=== PATIENT | female | born 1970 | race African-American/Black ===

== ENCOUNTER 2017-06-01 08:43 | Observation (INO) | payer OTHER ==
[2017-06-01 08:56] VITALS: BMI 38.9
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
[2017-06-01] MEDS ORDERED: LIDOCAINE 5% TOPICAL PATCH TP ONE (10:02)
[2017-06-01] MEDS ORDERED: traMADol HCL 50 MG TABLET PO ONE (10:02)
[2017-06-01] MEDS ORDERED: MAG HYDROX/AL HYDROX/SIMETH 30 ML UNIT-DOSE CUP PO ONE (10:11)
[2017-06-01] MEDS ORDERED: LIDOCAINE VISCOUS 2% ORAL/TOP 20 ML UNIT-DOSE CUP MM ONE (10:11)
[2017-06-01] MEDS ORDERED: traMADol HCL 50 MG TABLET ONE (11:46)
[2017-06-01] MEDS ORDERED: MAG HYDROX/AL HYDROX/SIMETH 30 ML UNIT-DOSE CUP ONE (11:46)
[2017-06-01] MEDS ORDERED: LIDOCAINE VISCOUS 2% ORAL/TOP 20 ML UNIT-DOSE CUP ONE (11:46)
[2017-06-01] MEDS ORDERED: LIDOCAINE 5% TOPICAL PATCH ONE ×2 (11:47)
[2017-06-01] MEDS ORDERED: SODIUM CHLORIDE 0.9% 1000 ML INFUS.BAG IV ONE (13:14)
[2017-06-01 14:13] LABS: BASOPHIL 1.1 % (0-2.0); EOSINOPHIL 5.5 % (0-4.5); MCH 28.3 pg (25.7-33.7); MCHC 32.4 g/dl (32.0-36.0); MEAN CELL VOLUME 87.4 fl (80-96); NEUTROPHILS 43.9 % (42.8-82.8); PLATELET COUNT 335 K/MM3 (134-434); RDW 14.3 % (11.6-15.6); WHITE BLOOD COUNT 4.8 K/mm3 (4.0-10.0)
[2017-06-01 14:33] LABS: ALBUMIN 3.6 g/dl (3.4-5.0); ALK PHOS 78 U/L (45-117); ANION GAP 8 (8-16); BILIRUBIN,TOTAL 0.7 mg/dL (0.2-1.0); CALCIUM 9.3 mg/dL (8.5-10.1); CO2 29 mmol/L (21-32); CPK 99 IU/L (26-192); CREATININE 0.6 mg/dL (0.55-1.02); GLUCOSE,RANDOM 85 mg/dL (74-106); SGPT/ALT 25 U/L (12-78); TOT PROT 7.4 g/dl (6.4-8.2)
[2017-06-01 14:34] LABS: TROPONIN I < 0.02 ng/ml (0.00-0.05)
[2017-06-01 14:40] LABS: SGOT/AST 22 U/L (15-37)
[2017-06-01] MEDS ORDERED: ENOXAPARIN NA (PORCINE) 100 MG/1 ML DISP.SYRIN SQ ONE ×2 (14:45→16:09)
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
[2017-06-01] MEDS: FERROUS SO4 325 MG TABLET (FP) PO SCH (21:19)
[2017-06-01] MEDS: METHOCARBAMOL 500 MG TABLET PO SCH (21:19)
[2017-06-01] MEDS: RANITIDINE HCL 150 MG TABLET (FP) PO SCH (21:20)
[2017-06-01] MEDS: NABUMETONE 750 MG TABLET PO SCH (21:20)
[2017-06-01 21:21] LABS: CPK 58 IU/L (26-192)
[2017-06-01 21:22] LABS: TROPONIN I < 0.02 ng/ml (0.00-0.05)
[2017-06-01] MEDS ORDERED: LIDOCAINE PATCH REMOVAL MC SCH (22:00)
[2017-06-02 02:03] LABS: CPK 57 IU/L (26-192); TROPONIN I < 0.02 ng/ml (0.00-0.05)
[2017-06-02] MEDS ORDERED: ENOXAPARIN NA (PORCINE) 100 MG/1 ML DISP.SYRIN SQ ONE (05:00)
[2017-06-02] MEDS: FERROUS SO4 325 MG TABLET (FP) PO SCH ×2 (05:33→14:38)
[2017-06-02 08:34] LABS: MCH 28.7 pg (25.7-33.7); MCHC 32.8 g/dl (32.0-36.0); MEAN CELL VOLUME 87.3 fl (80-96); MEAN PLT VOLUME 6.7 fl (7.5-11.1); PLATELET COUNT 301 K/MM3 (134-434); RDW 14.4 % (11.6-15.6); WHITE BLOOD COUNT 4.6 K/mm3 (4.0-10.0)
[2017-06-02] MEDS: METHOCARBAMOL 500 MG TABLET PO SCH ×3 (09:01→14:39)
[2017-06-02] MEDS: NABUMETONE 750 MG TABLET PO SCH (09:01)
[2017-06-02] MEDS: OXYBUTYNIN CHLORIDE 5 MG TABLET PO SCH ×2 (09:01→09:39)
[2017-06-02] MEDS: RANITIDINE HCL 150 MG TABLET (FP) PO SCH (09:01)
[2017-06-02 09:16] LABS: ALBUMIN 3.2 g/dl (3.4-5.0); ANION GAP 6 (8-16); CALCIUM 8.8 mg/dL (8.5-10.1); CO2 30 mmol/L (21-32); CREATININE 0.6 mg/dL (0.55-1.02); GLUCOSE,RANDOM 85 mg/dL (74-106); SGOT/AST 13 U/L (15-37); SGPT/ALT 21 U/L (12-78)
[2017-06-02 09:18] LABS: ALK PHOS 73 U/L (45-117); BILIRUBIN,TOTAL 0.7 mg/dL (0.2-1.0); TOT PROT 6.6 g/dl (6.4-8.2)
[2017-06-02] MEDS ORDERED: HYDROCHLOROTHIAZIDE 12.5 MG CAPSULE (FP) PO SCH (10:00)
[2017-06-02 10:31] VITALS: TEMP 98
[2017-06-02] MEDS ORDERED: oxyCODONE HCL 5 MG TABLET PO ONE (13:16)
--- NOTE | 2017-06-02 13:46 | DS ---
Physical Examination Vital Signs: Vital Signs Temperature 98 F 06/02/17 08:00 Pulse Rate 55 L 06/02/17 08:00 Respiratory Rate 20 06/02/17 08:00 Blood Pressure 110/69 06/02/17 08:00 O2 Sat by Pulse Oximetry (%) 98 06/02/17 08:00 Labs: CBC, BMP 06/02/17 07:35 06/02/17 07:35 Discharge Summary Reason For Visit: CHEST PAIN Current Active Problems Atypical chest pain (Acute) Chest pain (Acute) Condition: Improved - Instructions Diet, Activity, Other Instructions: Please return to the ED with new, persistent, or worsening symptoms. Please follow-up with providers as indicated. Referrals: Karina Oneill [Primary Care Provider] - (Please follow-up with Dr. Oneill within 1 week. ) Disposition: HOME - Home Medications Comprehensive Discharge Medication List: Ambulatory Orders Famotidine [Heartburn Prevention] 20 mg PO BID 06/01/17 Ferrous Sulfate 325 mg PO TID 06/01/17 Hydrochlorothiazide 12.5 mg PO DAILY 06/01/17 Methocarbamol 750 mg PO QID 06/01/17 Nabumetone 750 mg PO BID 06/01/17 Nabumetone 750 mg PO BID 06/01/17 Oxybutynin 5 mg PO DAILY 06/01/17 Vitamin D 1,000 WEEKLY 06/01/17 Lidocaine 5% Patch [Lidoderm -] 1 patch TP DAILY #7 patch 06/02/17 Oxycodone HCl [Roxicodone -] 5 mg PO Q6H PRN #20 tablet MDD 4 tabs 06/02/17
[2017-06-02 14:54] VITALS: BP 104/65; PULSE 60
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
--- NOTE | 2017-06-02 16:13 | PN ---
Teaching Attending Note Name of Resident: Raffy Arias ATTENDING PHYSICIAN STATEMENT I saw and evaluated the patient. I reviewed the resident's note and discussed the case with the resident. I agree with the resident's findings and plan as documented. SUBJECTIVE: OBJECTIVE: ASSESSMENT AND PLAN:
--- NOTE | 2017-06-06 09:48 | EKG ---
Test Reason : Blood Pressure : / mmHG Vent. Rate : 047 BPM Atrial Rate : 047 BPM P-R Int : 174 ms QRS Dur : 086 ms QT Int : 462 ms P-R-T Axes : 027 -14 012 degrees QTc Int : 408 ms SINUS BRADYCARDIA OTHERWISE NORMAL ECG WHEN COMPARED WITH ECG OF 16-MAR-2013 01:53, NO SIGNIFICANT CHANGE WAS FOUND Confirmed by LAILA PISANO MD ([id number]) on 06/06/2017 9:48:41 AM Referred By: Confirmed By:LAILA PISANO MD
== END 2017-06-02 17:00 | disposition home or self-care (01) ==
LOC: JER 08:43 → JERBED 13:33 → J4W 17:00
PROVIDERS: ADMIT Internal Medicine; ATTEND Registered Nurse
PROC: 3E013GC Introduction of Other Therapeutic Substance into Subcutaneous Tissue, Percutaneous Approach (ICD-10-PCS; principal; 2017-06-01)
PROC: 3E0337Z Introduction of Electrolytic and Water Balance Substance into Peripheral Vein, Percutaneous Approach (ICD-10-PCS; 2017-06-01)
DX: R07.89 Other chest pain (principal); D64.9 Anemia, unspecified; I10 Essential (primary) hypertension; K21.9 Gastro-esophageal reflux disease without esophagitis; Z91.048 Other nonmedicinal substance allergy status; Z87.09 Personal history of other diseases of the respiratory system; Z98.84 Bariatric surgery status; Z87.891 Personal history of nicotine dependence
CPT/HCPCS: 36415; 71010-TC; 71020-TC; 78582-TC; 80053; 84484; 84703; 85025; 85027; 93005; 93010; 93306-TC; 93970-TC; 94010; 99284-25; A9539; A9540; G0378

== ENCOUNTER 2018-05-24 05:54 | Day surgery (SDC) | payer OTHER ==
[2018-05-15 19:09] VITALS: BMI 37.8
[2018-05-24] MEDS ORDERED: ROPIVACAINE HCL 0.5% 30ML VIAL ONE (07:16)
[2018-05-24] MEDS ORDERED: MIDAZOLAM HCL 2 MG/2 ML SINGLE DOSE VIAL ONE ×2 (07:16→07:17)
[2018-05-24] MEDS ORDERED: PROPOFOL 20 ML ONE ×2 (07:17)
[2018-05-24] MEDS ORDERED: ceFAZolin SODIUM 1 GM VIAL ONE (07:18)
[2018-05-24] MEDS ORDERED: ONDANSETRON 4 MG/2 ML VIAL ONE (07:18)
[2018-05-24] MEDS ORDERED: LIDOCAINE HCL/PF 2% SDV 5ML VIAL ONE (07:18)
[2018-05-24] MEDS ORDERED: DEXAMETHASONE SOD PHOSPHATE 4 MG/1 ML VIAL ONE (07:18)
[2018-05-24] MEDS ORDERED: KETOROLAC TROMETHAMINE 30 MG/1 ML VIAL ONE (07:18)
[2018-05-24] MEDS ORDERED: SUCCINYLCHOLINE CHLORIDE 200 MG/10 ML VIAL ONE (07:24)
[2018-05-24] MEDS ORDERED: EPINEPHrine 1:1,000 1 MG/1 ML - 30ML VIAL (INJECTION) ONE (07:28)
[2018-05-24] MEDS ORDERED: BUPIVACAINE HCL/PF 0.5% (5MG/ML) 10 ML VIAL ONE (08:01)
[2018-05-24] MEDS ORDERED: ePHEDrine SULFATE 50 MG/1 ML AMPULE ONE (08:15)
[2018-05-24] MEDS ORDERED: ONDANSETRON 4 MG/2 ML VIAL IVPUSH PRN (09:58)
[2018-05-24] MEDS ORDERED: oxyCODONE HCL 5 MG TABLET PO PRN ×2 (09:58)
[2018-05-24] MEDS ORDERED: LACTATED RINGERS SOLUTION 1,000 ML IV SCH (10:00)
--- NOTE | 2018-05-24 10:42 | OP ---
Operative Note - Note: Operative Date: 05/24/18 Pre-Operative Diagnosis: r rot cuff tear Operation: r shoulder arthroscopy. -superior labral repair. -biceps tenodesis. -rotator cuff debridement. -subacromial decompression Implants: q-fix x1 Post-Operative Diagnosis: Same as Pre-op (+ SLAP lesion) Surgeon: Jong Blackwood Anesthesiologist/PULP AND PAPER TESTER: Fernando Schultz Anesthesia: Fractional Operative Report Dictated: Yes
[2018-05-24 11:37] VITALS: TEMP 97.5
--- NOTE | 2018-05-24 11:43 | OP ---
DATE OF OPERATION: 05/24/2018 PREOPERATIVE DIAGNOSES: Left shoulder rotator cuff tear, impingement. POSTOPERATIVE DIAGNOSES: Left shoulder rotator cuff tear, impingement, superior labral tear. PROCEDURES: Left shoulder arthroscopy with debridement of rotator cuff tear, biceps tenotomy, superior labral repair, subacromial decompression. ANESTHESIA: Regional plus LMA. POSTOPERATIVE CONDITION: Stable. COMPLICATIONS: None. IMPLANTS: A [employer] Q-FIX anchor single-loaded x1. INDICATIONS: This is a pleasant woman who is suffering from left shoulder pain. MRI demonstrated some rotator cuff tearing. She has failed to improve with conservative measures. We discussed the option of operative care. We reviewed operative risks in detail, including bleeding, infection, neurovascular injury, need for further surgery, postoperative pain and stiffness, re-tear. We discussed medical risks, such as heart attack, stroke, DVT, PE, and . We discussed the use of perioperative antibiotic and DVT prophylaxis. I addressed all of the patient's questions and concerns. We did review the postoperative rehabilitation protocol which can be very prolonged . Again, the patient voiced understanding and elected to proceed. PROCEDURE: The patient was brought to the OR, after administration of a regional block in the preoperative holding area. The left upper extremity was prepped and draped in the usual sterile fashion, after having placed the patient carefully into the beach-chair position. Examination of the extremity demonstrated full range of motion and good stability. The patient was given a preoperative dose of antibiotics and the usual timeout procedure was performed. The arthroscope was now passed in through an established posterior portal. Examination of the glenohumeral joint demonstrated no particular evidence of arthritis. There was significant fraying about the superior labrum. There was some fraying noted about the subscapularis. Passing the arthroscope superiorly demonstrated an intact biceps tendon. The supraspinatus demonstrated some tearing of the inner-most fibers. At this point, an anterior portal was established. Probing the superior labrum demonstrated gross instability and undersurface tear. Given the instability and degenerative tear, it was felt that a biceps tenotomy would best . This was then performed using an up-biting tool. The labrum remained in a displaced position. It was therefore decided to place one anchor to secure the labrum in a more anatomic location. The better of the superior glenoid was debrided using a shaver as well as electrocautery. A single Q-FIX anchor was placed at the apex of the glenoid. A suture was passed in horizontal mattress fashion and then tied down, securing the labrum back down to the superior surface of the glenoid. It was now stable to probing. The shaver was then passed over the supraspinatus partial tear. It was seen to be involving only the inner-most portion and no extension was seen. The subscapularis despite having some fraying demonstrated no need for any intervention. The arthroscope was now withdrawn from the joint. It was passed into the subacromial space. Here, moderate bursitis was noted. A bursectomy was performed. Due to some impingement morphology anteriorly, the undersurface of the acromion was debrided. It was noted that there was an os acromiale which demonstrated motion. The piece was not grossly unstable though and therefore no intervention was needed. At this point, the excess fluid was withdrawn from the joint. It should be noted that prior to doing this, the rotator cuff was inspected and passed through a range of motion and no bursal-sided tears were noted. The portals were then sutured using 3-0 nylon. Sterile dressings were placed. The patient was transferred to the recovery room in stable condition. GENE KELSEY M.D. CHRISTOPHE/[id number]
[2018-05-24] MEDS ORDERED: BSS (NA/CA/MG/K) BALANCED SALT SOLUTION OPHTH SOLN 15 ML BOTTLE ONE (12:36)
[2018-05-24 12:59] VITALS: BP 116/72; PULSE 70
== END 2018-05-24 12:40 | disposition home or self-care (01) ==
LOC: FASU 05:54
PROVIDERS: ATTEND Orthopaedic Surgery Sports Medicine
PROC: 0MM24ZZ Reattachment of Left Shoulder Bursa and Ligament, Percutaneous Endoscopic Approach (ICD-10-PCS; 2018-05-24)
PROC: 0RQK4ZZ Repair Left Shoulder Joint, Percutaneous Endoscopic Approach (ICD-10-PCS; 2018-05-24)
PROC: 0LQ24ZZ Repair Left Shoulder Tendon, Percutaneous Endoscopic Approach (ICD-10-PCS; principal; 2018-05-24 08:47)
PROC: 0RNK4ZZ Release Left Shoulder Joint, Percutaneous Endoscopic Approach (ICD-10-PCS; 2018-05-24 08:47)
DX: M75.102 Unspecified rotator cuff tear or rupture of left shoulder, not specified as traumatic (principal); M75.42 Impingement syndrome of left shoulder; M24.112 Other articular cartilage disorders, left shoulder
CPT/HCPCS: 94760

== ENCOUNTER 2019-03-07 09:18 | Emergency (ER) | payer OTHER ==
[2019-03-07 09:41] VITALS: BP 129/76; PULSE 69; TEMP 98.8; BMI 37.8
--- NOTE | 2019-03-07 09:46 | PDOC ---
*Physical Exam - Vital Signs Last Vital Signs Temp Pulse Resp BP Pulse Ox 98.8 F 69 16 129/76 100 03/07/19 09:35 03/07/19 09:35 03/07/19 09:35 03/07/19 09:35 03/07/19 09:35 ED Treatment Course - LABORATORY CBC & Chemistry Diagram: 03/07/19 11:14 03/07/19 11:14 Medical Decision Making - Medical Decision Making 03/07/19 09:45 48 yo F presenting to the ER with a complaint of severe epigastric burning radiating to the chest Pt has had these symptoms for months and they are worsening No fevers or chills Pt came in to the ER today because she is now also nauseous Pt seen by Midlevel Provider under my direct supervision Will give Protonix, Zofran, Carafate Will re assess Labs: Laboratory Tests 03/07/19 03/07/19 11:14 11:14 WBC 4.6 Hgb 13.8 Hct 41.3 Plt Count 368 D BUN 10.8 Creatinine 0.9 AST 27 ALT 26 Lipase 95 I agree with plan as outlined by Midlevel Provider 03/07/19 10:22 Pt improved while in the ER Pt will need to follow up with GI for endoscopy as she potentially has ulcer/ gastritis/ gamble's esophagus/Hpylori Will discharge to home *DC/Admit/Observation/Transfer Diagnosis at time of Disposition: GERD (gastroesophageal reflux disease) - Discharge Dispostion Disposition: HOME Condition at time of disposition: Stable - Prescriptions Prescriptions: Pantoprazole Sodium [Protonix] 40 mg PO DAILY #30 tablet. Sucralfate [Carafate -] 1 gm PO Q6H #28 tablet - Referrals Referrals: Ranulfo Correa MD [Primary Care Provider] - 2 Days Lennox Forde MD [Staff Physician] - Call tomorrow - Patient Instructions Printed Discharge Instructions: DI for Gastroesophageal Reflux Disease (GERD) - Post Discharge Activity
[2019-03-07] MEDS ORDERED: ONDANSETRON *ODT* 4 MG TABLET SL ONE (09:53)
[2019-03-07] MEDS ORDERED: PANTOPRAZOLE 40 MG TABLET (FP) PO ONE (09:53)
[2019-03-07] MEDS ORDERED: ONDANSETRON *ODT* 4 MG TABLET ONE (09:59)
[2019-03-07] MEDS ORDERED: PANTOPRAZOLE 40 MG TABLET (FP) ONE (09:59)
[2019-03-07] MEDS ORDERED: SUCRALFATE 1 GM TABLET (FP) PO ONE (10:02)
[2019-03-07] MEDS ORDERED: SUCRALFATE 1 GM TABLET (FP) ONE (10:03)
--- NOTE | 2019-03-07 10:13 | PDOC ---
History of Present Illness - General Chief Complaint: Pain, Acute Stated Complaint: PAIN Time Seen by Provider: 03/07/19 09:40 History Source: Patient Exam Limitations: No Limitations Past History - Past Medical History Allergies/Adverse Reactions: Allergies Allergy/AdvReac Type Severity Reaction Status Date / Time iodine Allergy Unknown Swelling Verified 03/07/19 09:34 Home Medications: Ambulatory Orders Famotidine [Heartburn Prevention] 20 mg PO BID 06/01/17 Ferrous Sulfate 325 mg PO BID 06/01/17 Ergocalciferol (Vitamin D2) [Vitamin D2] 2,000 unit PO WEEKLY 04/11/18 Hydrochlorothiazide [Hctz -] 12.5 mg PO HS 04/11/18 Oxybutynin Chloride [Ditropan Xl] 10 mg PO HS 04/11/18 Naproxen [Naprosyn] 500 mg PO ASDIR PRN 05/24/18 Pantoprazole Sodium [Protonix] 40 mg PO DAILY #30 tablet. 03/07/19 Sucralfate [Carafate -] 1 gm PO Q6H #28 tablet 03/07/19 Anemia: Yes (r/t gastric bypass) Asthma: No Cancer: No Cardiac Disorders: No CVA: No COPD: No CHF: No Dementia: No Diabetes: No GI Disorders: Yes (GERD) Disorders: No HTN: No Hypercholesterolemia: No Liver Disease: No Seizures: No Thyroid Disease: No - Surgical History Abdominal Surgery: Yes (gastric bypass) Appendectomy: No Cardiac Surgery: No Cholecystectomy: No Lung Surgery: No Neurologic Surgery: No Orthopedic Surgery: No - Immunization History Immunization Up to Date: No - Suicide/Smoking/Psychosocial Hx Smoking Status: Yes Smoking History: Former smoker Have you smoked in the past 12 months: No Number of Cigarettes Smoked Daily: 2 If you are a former smoker, when did you quit?: 2013 Information on smoking cessation initiated: No 'Breaking Loose' booklet given: 08/31/13 Hx Alcohol Use: No Drug/Substance Use Hx: No Substance Use Type: Alcohol Hx Substance Use Treatment: No *Physical Exam - Vital Signs Last Vital Signs Temp Pulse Resp BP Pulse Ox 98.8 F 69 16 129/76 100 03/07/19 09:35 03/07/19 09:35 03/07/19 09:35 03/07/19 09:35 03/07/19 09:35 - Physical Exam General Appearance: No: Apparent Distress Respiratory/Chest: positive: Lungs Clear, Normal Breath Sounds. negative: Respiratory Distress Cardiovascular: positive: Regular Rhythm, Regular Rate, S1, S2. negative: Murmur Gastrointestinal/Abdominal: positive: Normal Bowel Sounds, Tender (mild along epigastric site, no RUQ tenderness), Soft. negative: Distended, Guarding, Rebound Integumentary: positive: Normal Color Neurologic: positive: Alert, Normal Mood/Affect ED Treatment Course - LABORATORY CBC & Chemistry Diagram: 03/07/19 11:14 03/07/19 11:14 - Medications Given in the ED: ED Medications Discontinued Medications Generic Name Dose Route Start Last Admin Trade Name Jules PRN Reason Stop Dose Admin Ondansetron HCl 4 mg 03/07/19 09:53 03/07/19 10:02 Zofran Odt - SL 03/07/19 09:54 4 mg ONCE ONE Administration Pantoprazole Sodium 40 mg 03/07/19 09:53 03/07/19 10:02 Protonix - PO 03/07/19 09:54 40 mg ONCE ONE Administration Medical Decision Making - Medical Decision Making 48 y/o F hx of GERD (for around 20 years), asthma, anemia, gastric bypass ( around 10 years ago) presents with gradual worsening of her acid reflux since December 2018, particularly worse the past 3 days. Mentions having NBNB emesis yesterday and 1 episode today along with loose stools. Is currently taking Pepcid and also tried Gaviscon, which has not been helping. Patient is not currently on a PPI; was on a PPI in the past, but it wasn't as effective as Pepcid. Patient has not seen a GI doctor in 15 years and does not recall any prior endoscopies done. Mentions she did not discuss this with her PCP either. States she also changed her diet in December to eat less fried foods and sleeps upright, but still not feeling any better. Was former smoker (quit 5 years ago; smoked around 25 years, 3 cigs/day). +social alcohol intake. Denies fever, URI sxs, sob, urinary complaints, black/bloody stools, hematemesis. Concern for worsening GERD (will need endoscopy as outpatient for further evaluation - consider Ram's, H. pylori infection, PUD) Given chronicity of symptoms, not suspicious for ACS at this time; also unlikely cholecystitis, pancreatitis, diverticulitis, perforated/bleeding PUD Plan: Protonix, Sucralfate, SL Zofran, reassess 03/07/19 10:07 Patient not feeling better after meds given Plan: Labs, IV Pepcid, Maalox, viscous lidocaine 03/07/19 11:17 Patient feeling much better on reassessment Labs unremarkable Will refer to GI stable for dc 03/07/19 12:36 *DC/Admit/Observation/Transfer Diagnosis at time of Disposition: GERD (gastroesophageal reflux disease) Qualifiers: Esophagitis presence: esophagitis presence not specified Qualified Code(s): K21.9 - Gastro-esophageal reflux disease without esophagitis - Discharge Dispostion Disposition: HOME Condition at time of disposition: Stable Decision to Admit order: No - Prescriptions Prescriptions: Pantoprazole Sodium [Protonix] 40 mg PO DAILY #30 tablet. Sucralfate [Carafate -] 1 gm PO Q6H #28 tablet - Referrals Referrals: Lennox Forde MD [Staff Physician] - Call tomorrow Ranulfo Correa MD [Primary Care Provider] - 2 Days - Patient Instructions Printed Discharge Instructions: DI for Gastroesophageal Reflux Disease (GERD) Additional Instructions: Thank you for choosing [facility]. It was a pleasure taking care of you. You were prescribed medications for your acid reflux Take as prescribed You were referred to GI doctor - please call to make appointment; you may need endoscopy for further evaluation of your symptoms Also follow-up with your regular doctor in 2-3 days Return to the Emergency Department if your symptoms worsen or persist or have other concerning symptoms. - Post Discharge Activity
[2019-03-07] MEDS ORDERED: MAG HYDROX/AL HYDROX/SIMETH 30 ML UNIT-DOSE CUP PO ONE (10:54)
[2019-03-07] MEDS ORDERED: LIDOCAINE VISCOUS 2% ORAL/TOP 20 ML UNIT-DOSE CUP MM ONE (10:54)
[2019-03-07] MEDS ORDERED: FAMOTIDINE 20 MG/50 ML IVPB 20 MG/50 ML MG IVPB ONE ×2 (10:54→11:22)
[2019-03-07] MEDS ORDERED: SODIUM CHLORIDE 1,000 ML IV STA (11:10)
[2019-03-07] MEDS ORDERED: MAG HYDROX/AL HYDROX/SIMETH 30 ML UNIT-DOSE CUP ONE (11:14)
[2019-03-07] MEDS ORDERED: LIDOCAINE VISCOUS 2% ORAL/TOP 20 ML UNIT-DOSE CUP ONE (11:14)
[2019-03-07 11:28] LABS: BASO % 0.3 % (0-2.0); EOS % 1.1 % (0-4.5); HEMATOCRIT 41.3 % (32.4-45.2); HEMOGLOBIN 13.8 GM/dL (10.7-15.3); MCH 28.5 pg (25.7-33.7); MCHC 33.3 g/dl (32.0-36.0); MEAN CELL VOLUME 85.4 fl (80-96); MEAN PLT VOLUME 6.8 fl (7.5-11.1); MONO % 5.7 % (3.8-10.2); NEUT % 51.9 % (42.8-82.8); RBC 4.84 M/mm3 (3.60-5.2); RDW 14.4 % (11.6-15.6); WHITE BLOOD COUNT 4.6 K/mm3 (4.0-10.0)
[2019-03-07 11:35] LABS: PLATELET COUNT 368 K/MM3 (134-434)
[2019-03-07 12:06] LABS: ALBUMIN 3.9 g/dl (3.4-5.0); BILIRUBIN,TOTAL 0.5 mg/dL (0.2-1); BLOOD UREA NITROGEN 10.8 mg/dL (7-18); CALCIUM 9.8 mg/dL (8.5-10.1); CREATININE 0.9 mg/dL (0.55-1.3); MAGNESIUM 2.4 mg/dL (1.8-2.4); POTASSIUM 4.5 mmol/L (3.5-5.1); TOT PROT 8.6 g/dl (6.4-8.2)
== END 2019-03-07 12:52 | disposition home or self-care (01) ==
LOC: JER 09:18
PROC: 3E033GC Introduction of Other Therapeutic Substance into Peripheral Vein, Percutaneous Approach (ICD-10-PCS; principal; 2019-03-07)
PROC: 3E0337Z Introduction of Electrolytic and Water Balance Substance into Peripheral Vein, Percutaneous Approach (ICD-10-PCS; 2019-03-07)
DX: K21.9 Gastro-esophageal reflux disease without esophagitis (principal); Z98.84 Bariatric surgery status; Z87.891 Personal history of nicotine dependence
CPT/HCPCS: 36415; 80053; 83690; 83735; 85025; 99281-25; J7030; Q0162

== ENCOUNTER 2019-10-03 15:57 | Emergency (ER) | payer OTHER ==
--- NOTE | 2019-10-03 16:18 | PDOC ---
Rapid Medical Evaluation Time Seen by Provider: 10/03/19 16:14 Medical Evaluation: Allergies Allergy/AdvReac Type Severity Reaction Status Date / Time iodine Allergy Unknown Swelling Verified 10/03/19 16:15 10/03/19 16:15 CC: R knee pain Pt is a 49 y/o female with L knee pain that started without injury. No fevers. No known history of gout. Brief exam: Medial R knee tenderness to palpation, Minimal ROM secondary to pain Orders: R knee xray To ED for further evaluation Discharge Disposition - Diagnosis Right knee pain - Referrals - Patient Instructions - Post Discharge Activity
[2019-10-03 16:22] VITALS: BP 118/72; PULSE 62; TEMP 97.9; BMI 31.7
--- NOTE | 2019-10-03 16:34 | PDOC ---
History of Present Illness - General Chief Complaint: Pain, Acute Stated Complaint: RT KNEE PAIN Time Seen by Provider: 10/03/19 16:14 History Source: Patient Exam Limitations: No Limitations Past History - Past Medical History Allergies/Adverse Reactions: Allergies Allergy/AdvReac Type Severity Reaction Status Date / Time iodine Allergy Unknown Swelling Verified 10/03/19 16:15 Home Medications: Ambulatory Orders Ferrous Sulfate 325 mg PO BID 06/01/17 Ergocalciferol (Vitamin D2) [Vitamin D2] 1,000 unit PO DAILY 04/11/18 Oxybutynin Chloride [Ditropan Xl] 10 mg PO HS 04/11/18 Hydroxyzine HCl 50 mg PO HS 10/03/19 Anemia: Yes (r/t gastric bypass) Asthma: No Cancer: No Cardiac Disorders: No CVA: No COPD: No CHF: No Dementia: No Diabetes: No GI Disorders: Yes (GERD) Disorders: No HTN: No Hypercholesterolemia: No Liver Disease: No Seizures: No Thyroid Disease: No - Surgical History Abdominal Surgery: Yes (gastric bypass) Appendectomy: No Cardiac Surgery: No Cholecystectomy: No Lung Surgery: No Neurologic Surgery: No Orthopedic Surgery: No - Immunization History Immunization Up to Date: No - Psycho Social/Smoking Cessation Hx Smoking Status: Yes Smoking History: Unknown if ever smoked Have you smoked in the past 12 months: No Number of Cigarettes Smoked Daily: 2 If you are a former smoker, when did you quit?: 2013 'Breaking Loose' booklet given: 08/31/13 Hx Alcohol Use: No Drug/Substance Use Hx: No Substance Use Type: Alcohol Hx Substance Use Treatment: No *Physical Exam - Vital Signs Last Vital Signs Temp Pulse Resp BP Pulse Ox 97.9 F 62 18 118/72 99 10/03/19 16:17 10/03/19 16:17 10/03/19 16:17 10/03/19 16:17 10/03/19 16:17 - Physical Exam General Appearance: No: Apparent Distress Extremity: positive: Other (mild R suprapateller effusion, slightly limited ROM of R knee (slight decrease in flexion of knee), no joint laxity, +RLE more swollen than LLE, no pitting edema, no calf tenderness) Integumentary: positive: Normal Color. negative: Erythema, Mottled, Ecchymosis , Bruising Neurologic: positive: Alert Medical Decision Making - Medical Decision Making 49 y/o F hx of asthma, anemia, GERD, gastric bypass, presents with R knee pain x 3 days. denies trauma. 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 Denies kneeling on her knee. Denies prior knee surgeries. Denies fever, sob, cp, abd pain, n/v, calf pain Consider bursitis, DVT, wynn's cyst Plan: Xray, RLE US 10/03/19 16:41 Xray negative No DVT noted Noted with 5x4x2 cm R wynn's cyst will refer to ortho 10/03/19 17:52 Discharge - Discharge Information Problems reviewed: Yes Clinical Impression/Diagnosis: Bakers cyst Qualifiers: Laterality: right Qualified Code(s): M71.21 - Synovial cyst of popliteal space [Wynn], right knee Condition: Stable Disposition: HOME - Admission No - Additional Discharge Information Prescription Drug Monitoring Program (I-STOP) results: I-STOP not reviewed - Follow up/Referral Referrals: Deepa Hearn MD [Primary Care Provider] - Eduardo Kumar MD [Staff Physician] - 2 Days - Patient Discharge Instructions Patient Printed Discharge Instructions: DI for Wynn's Cyst Additional Instructions: Thank you for choosing [facility]. It was a pleasure taking care of you. You were noted with a Wynn's cyst You referred to orthopedics for further evaluation regarding this You may take Motrin 600 mg every 6 hours as needed for pain. Take Motrin with food. Return to the Emergency Department if your symptoms worsen or persist or have other concerning symptoms. - Post Discharge Activity
== END 2019-10-03 18:01 | disposition home or self-care (01) ==
LOC: JERFT 15:57
DX: M71.21 Synovial cyst of popliteal space [Baker], right knee (principal); J45.909 Unspecified asthma, uncomplicated; K21.9 Gastro-esophageal reflux disease without esophagitis; D64.89 Other specified anemias; Z98.84 Bariatric surgery status; Z88.8 Allergy status to other drugs, medicaments and biological substances
CPT/HCPCS: 73562-TC-RT-FY; 93971-TC; 99281-25

== ENCOUNTER 2020-08-12 12:15 | Emergency (ER) | payer OTHER ==
[2020-08-12 12:21] VITALS: PULSE 56; TEMP 98.2; BMI 37.4
[2020-08-12] MEDS ORDERED: PANTOPRAZOLE SODIUM 40 MG VIAL IVPB ONE (12:51)
[2020-08-12] MEDS ORDERED: ONDANSETRON 4 MG/2 ML VIAL IVPUSH ONE (12:51)
[2020-08-12] MEDS ORDERED: ACETAMINOPHEN 1000 MG/100 ML VIAL (NON FORMULARY) IVPB ONE (12:51)
[2020-08-12] MEDS ORDERED: SODIUM CHLORIDE 1,000 ML IV STA ×2 (12:51→15:07)
[2020-08-12] MEDS ORDERED: MAG HYDROX/AL HYDROX/SIMETH -MYLANTA- ORAL SUSPENSION PO ONE (12:53)
[2020-08-12] MEDS ORDERED: ACETAMINOPHEN INJECTION 100 ML IVPB ONE (12:59)
[2020-08-12] MEDS ORDERED: PANTOPRAZOLE SODIUM 40 MG/100 ML BAG IVPB ONE (13:40)
[2020-08-12] MEDS ORDERED: ONDANSETRON 4 MG/2 ML VIAL ONE (13:41)
[2020-08-12] MEDS ORDERED: MAG HYDROX/AL HYDROX/SIMETH 30 ML UNIT-DOSE CUP ONE (13:41)
[2020-08-12 13:47] LABS: BASO % 1.6 % (0-2.0); EOS % 0.9 % (0-4.5); HEMATOCRIT 43.4 % (32.4-45.2); LYMPH % 43.7 % (8-40); MCH 28.1 pg (25.7-33.7); MCHC 32.1 g/dl (32.0-36.0); MEAN CELL VOLUME 87.6 fl (80-96); MEAN PLT VOLUME 7.3 fl (7.5-11.1); MONO % 7.3 % (3.8-10.2); NEUT % 46.5 % (42.8-82.8); PLATELET COUNT 314 K/MM3 (134-434); RBC 4.96 M/mm3 (3.60-5.2); RDW 13.9 % (11.6-15.6); WHITE BLOOD COUNT 5.4 K/mm3 (4.0-10.0)
[2020-08-12 13:51] LABS: CHLORIDE 102 mmol/L (98-107); POTASSIUM 4.2 mmol/L (3.5-5.1); SODIUM 139 mmol/L (136-145)
[2020-08-12 13:53] LABS: CALCIUM 9.7 mg/dL (8.5-10.1)
[2020-08-12 13:55] LABS: ANION GAP 9 MMOL/L (8-16); BLOOD UREA NITROGEN 7.4 mg/dL (7-18); CO2 28 mmol/L (21-32); GLUCOSE,RANDOM 93 mg/dL (74-106); LIPASE 94 U/L (73-393)
[2020-08-12 13:58] LABS: BILIRUBIN,TOTAL 0.8 mg/dL (0.2-1); CREATININE 0.7 mg/dL (0.55-1.3); SGOT/AST 32 U/L (15-37); SGPT/ALT 32 U/L (13-61); TOT PROT 8.2 g/dl (6.4-8.2)
[2020-08-12 14:00] LABS: ALK PHOS 85 U/L (45-117)
[2020-08-12] MEDS ORDERED: LIDOCAINE VISCOUS 2% ORAL/TOP 20 ML UNIT-DOSE CUP MM ONE (14:39)
[2020-08-12] MEDS ORDERED: FAMOTIDINE 20 MG/50 ML IVPB 20 MG/50 ML MG IVPB ONE ×2 (14:39→14:46)
[2020-08-12] MEDS ORDERED: LIDOCAINE VISCOUS 2% ORAL/TOP 20 ML UNIT-DOSE CUP ONE (14:46)
[2020-08-12 15:36] LABS: EPI CELLS 7 /uL (0-25.1); HYALINE CASTS 12 /uL (0-3.1); PH,URINE 5.5 (5.0-8.0); URINE APPEARANCE CLOUDY; URINE BACTERIA >9,000 /uL (0-1359); URINE BILIRUBIN 1+ (NEGATIVE); URINE COLOR DK YELLOW; URINE GLUCOSE (UA) NEGATIVE (NEGATIVE); URINE KETONE 1+ (NEGATIVE); URINE LEUK ESTERASE TRACE (NEGATIVE); URINE NITRITE POSITIVE (NEGATIVE); URINE PROTEIN TRACE (NEGATIVE); URINE RBC 4 /uL (0-23.9); URINE WBC 152 /uL (0-25.8)
[2020-08-12 17:06] VITALS: BP 144/69
== END 2020-08-12 17:13 | disposition home or self-care (01) ==
LOC: JER 12:15
PROC: 3E0333Z Introduction of Anti-inflammatory into Peripheral Vein, Percutaneous Approach (ICD-10-PCS; principal; 2020-08-12)
PROC: 3E033GC Introduction of Other Therapeutic Substance into Peripheral Vein, Percutaneous Approach (ICD-10-PCS; 2020-08-12)
PROC: 3E033GC Introduction of Other Therapeutic Substance into Peripheral Vein, Percutaneous Approach (ICD-10-PCS; 2020-08-12)
PROC: 3E033GC Introduction of Other Therapeutic Substance into Peripheral Vein, Percutaneous Approach (ICD-10-PCS; 2020-08-12)
PROC: 3E0337Z Introduction of Electrolytic and Water Balance Substance into Peripheral Vein, Percutaneous Approach (ICD-10-PCS; 2020-08-12)
PROC: 3E0337Z Introduction of Electrolytic and Water Balance Substance into Peripheral Vein, Percutaneous Approach (ICD-10-PCS; 2020-08-12)
DX: K21.9 Gastro-esophageal reflux disease without esophagitis (principal); N30.00 Acute cystitis without hematuria
CPT/HCPCS: 36415; 80053; 81003; 82550; 82553; 83690; 84484; 85025; 87086; 87186; 93005; 93010; 99285-25; J0131